=== PATIENT | male | born 1980 | race Asian ===

== ENCOUNTER 2017-09-15 06:47 | Emergency (ER) | payer SELFPAY ==
[~2017-09-15] VITALS: Ht 165.1 cm; Wt 135.2 kg
[2017-09-15] MEDS ORDERED: DIPHTH/TETANUS/ACEL. PERTUSSIS 0.5 ML SYR IM ONE (08:15)
[2017-09-15] MEDS ORDERED: LIDOCAINE 1% W/EPINEPHRINE 20 ML VIAL INJ ONE (08:15)
[2017-09-15 08:50] VITALS: BP 140/88
== END 2017-09-15 08:30 | disposition home or self-care (01) ==
LOC: FSED 06:47
DX: L02.11 Cutaneous abscess of neck (principal); I10 Essential (primary) hypertension
CPT/HCPCS: 87071; 87205; 99283